=== PATIENT | male | born 1965 | race Caucasian/White ===

== ENCOUNTER 2024-07-19 09:17 | Emergency (ER) | payer OTHER, SELFPAY ==
[2024-07-19 09:22] VITALS: BP 153/86
[2024-07-19 10:19] VITALS: BMI 20.3
--- NOTE | 2024-07-19 10:28 | ED.GENMED ---
History of Present Illness
General
Chief Complaint: Change in Mental Status
Source: patient
Exam Limitations: none
Time Seen by Provider: 07/19/24 09:51
Nursing documentation reviewed up to this point in time: agreed with
History of Present Illness
History of Present Illness:
58-year-old male past medical history of CAD diabetes presenting to the emergency department today with concerns of ongoing difficulty sleeping for multiple months worsening more recently. Also has been having 'twitching'. Seems to happen
occasionally during the day it happens more when he thinks about it. Also does notice cramping in his legs that happens every hour or so while trying to sleep. Has been taking Ambien without significant help.
Review of Systems
Review of Systems
Allergies reviewed?: Yes
All Other Systems: ROS reviewed and negative except as documented in HPI and ROS
Phy Exam
Physical Exam
Physical Exam:
GENERAL: Alert , in no apparent distress
EYE: pupils equal and reactive
NECK: Supple, no significant adenopathy.
ENT: o/p clr, mmm.
CARDIAC: Regular rate and rhythm .
LUNGS: Clear breath sounds bilaterally, no acute respiratory distress, no wheezes/rales/rhonchi
ABDOMEN: Soft, without focal tenderness, no r/g, no cvat
NEUROLOGICAL: Alert and oriented, no focal neuro deficits
SKIN: Warm and dry, skin intact.
MUSCULOSKELETAL: No edema, well perfused.
PSYCH: Normal and appropriate interaction.
Course
Orders/Labs/Results
Orders:
Orders
07/19/24 10:13
Crisis Consult Urgent
Reason for Consult: psych resources needed
07/19/24 10:22
CBC/With Diff [Complete Blood Count/With Diff] Urgent
CMP [Comprehensive Metabolic Panel] Urgent
TSH Reflex To Free T4 Urgent
07/19/24 10:26
Urinalysis Reflex To Culture Urgent
Date Specimen was Collected: 07/19/24
Time Specimen was Collected: 10:26
Abnormal Lab Results
07/19/24 07/19/24
10:22 10:26
MCH 31.4 H pg
(27.0-31.0)
Lymphocytes % 18.0 L %
(20.5-51.1)
Glucose 225 H mg/dl
(70-99)
Urine Ketones 3+ A
(Negative)
Urine Glucose 3+ A
(Negative)
07/19/24 10:22
07/19/24 10:22
Vital Signs
Initial and Last Documented VS:
Initial Vital Signs
Temp Pulse Resp BP Pulse Ox
98.2 F 84 16 153/86 98
07/19/24 09:22 07/19/24 09:22 07/19/24 09:22 07/19/24 09:22 07/19/24 09:22
Last Documented Vital Signs
Temp Pulse Resp BP Pulse Ox
98.2 F 84 16 137/88 98
07/19/24 09:22 07/19/24 09:22 07/19/24 09:22 07/19/24 10:33 07/19/24 10:34
MDM/Problems Addressed
MDM/Problems Addressed:
58-year-old male presenting to the emergency department today with concerns of difficulty sleeping likely more than an hour a night over the past few weeks has had difficulty sleeping for many months to years. Also does notice some cramping and
twitching. On arrival blood pressure elevated otherwise vital signs are normal. Patient in no distress. Patient speaking fluently does not appear confused on examination. No emergent findings on labs patient vies for close outpatient follow-up
with psychiatry return precautions given.
*Critical Care Note
Total Time (30-74mins, 75-104mins- exclusive of procedures): Not Applicable
ED Attending Note
-
Portions of this chart may have been created with voice recognition software.� Occasional wrong word or��sound alike� substitutions may have occurred due to the inherent limitations of voice recognition software.
Discharge Plan
Departure
Patient Disposition: Home (Routine Discharge)
Date of Disposition: 07/19/24
Time of Disposition: 12:49
Patient with high blood pressure during this ER visit?: No
Condition: Good
Covid-19: Not Applicable
Discharge Problem:
Hyperglycemia, Insomnia
Prescriptions:
New
hydroxyzine HCl 25 mg tablet
25 mg PO HS Qty: 14 0RF
Referrals:
Trevor Sanders, DO [Family Provider] -
Activity Restrictions/Additional Instructions:
You came to the emergency department today with concerns of lack of sleep. Here you had elevated sugar level but otherwise labs are unremarkable. Please follow closely with [facility]. Phone number is [phone]. Return for any
worsening, new or concerning symptoms.
Interventions
Interventions:
*Risk Screen - Suicide Last Done: 07/19/24 09:22
*General Assessment Last Done: 07/19/24 10:20
*Neglect/Abuse Screening Last Done: 07/19/24 09:22
*ED- Fall Risk Assessment Last Done: 07/19/24 09:49
*ED COVID-19 Vaccine History Last Done: 07/19/24 09:49
ED- Neurological Assessment Last Done: 07/19/24 10:20
ED Swallowing Screen Last Done: 07/19/24 09:57
Discharge Date and Time
Print Language: LAO
[2024-07-19 10:33] VITALS: BP 137/88
[2024-07-19 10:49] LABS: % Basophils 0.5 % (0-2); % Eosinophils 0.2 % (0-6); % Immature Granulocytes 0.4 % (0-0.5); % Monocytes 7.5 % (1.7-9.3); % Neutrophils 73.4 % (42.2-75.2); Absolute Lymphocytes 1.5 10^3/uL (1.2-3.4); Absolute Monocytes 0.6 10^3/uL (0.1-0.6); Mean Corp Hgb Conc. 34.9 g/dL (33.0-37.0); Mean Corpuscular Hgb 31.4 pg (27.0-31.0); Mean Platelet Volume 8.8 fL (7.4-10.4); Nucleated Red Blood Cells % 0 % (-); Platelet Count 322 10^3/uL (130-400); Red Blood Cell Count 4.78 10^6/uL (4.70-6.10); Red Cell Dist. Width 12.3 % (11.5-14.5); White Blood Cell Count 8.2 10^3/uL (4.8-10.8)
[2024-07-19 10:54] LABS: ALT (SGPT) 18 U/L (0-50); AST (SGOT) 20 U/L (17-59); Albumin 4.2 g/dl (3.5-5.0); Alkaline Phosphatase 75 U/L (38-126); Blood Urea Nitrogen 17 mg/dl (9-20); Calcium 9.7 mg/dl (8.4-10.2); Carbon Dioxide 28 mmol/L (22-30); Chloride 101 mmol/L (98-107); Estimated Creatinine Clearance 97 ml/min; Glucose 225 mg/dl (70-99); Potassium 4.3 mmol/L (3.5-5.1); Sodium 136 mmol/L (135-145); Total Bilirubin 0.5 mg/dl (0.2-1.3); Total Protein 6.5 g/dl (6.3-8.2); eGFR > 60.00
[2024-07-19 11:07] LABS: Urine Albumin Negative (Neg - Trace); Urine Bilirubin Negative (Negative); Urine Character Clear (Clear); Urine Color Yellow; Urine Glucose 3+ (Negative); Urine Ketone 3+ (Negative); Urine Leukocyte Negative (Negative); Urine Nitrite Negative (Negative); Urine Occult Blood Negative (Negative); Urine Specific Gravity 1.015 (<1.030); Urine Urobilinogen Negative (Neg - 1+)
[2024-07-19 11:24] LABS: TSH Reflex To Free T4 1.69 uIU/ml (0.47-4.68)
== END 2024-07-19 13:18 | disposition home or self-care (01) ==
LOC: EMR 09:17
PROVIDERS: Physician Assistant; EMERGENCY PHYSICIAN Student in an Organized Health Care Education/Training Program; FAMILY PHYSICIAN Family Medicine
DX: E11.65 Type 2 diabetes mellitus with hyperglycemia (principal); G47.00 Insomnia, unspecified; R25.2 Cramp and spasm; I25.10 Atherosclerotic heart disease of native coronary artery without angina pectoris
CPT/HCPCS: 99283; 80053; 81003; 84443; 85025